=== PATIENT | female | born 1935 ===

== ENCOUNTER 2022-08-19 08:01 | Outpatient (CLI) | payer OTHER | END 2022-08-19 08:11 | disposition home or self-care (01) | LOC: EDBD 08:01 → RAD 08:01 | PROVIDERS: ATTEND Internal Medicine Cardiovascular Disease | DX: I63.50 Cerebral infarction due to unspecified occlusion or stenosis of unspecified cerebral artery (principal); R51.9 Headache, unspecified; R42 Dizziness and giddiness; R10.9 Unspecified abdominal pain; J44.9 Chronic obstructive pulmonary disease, unspecified ==

== ENCOUNTER 2023-01-05 09:16 | Outpatient (CLI) | payer OTHER | END 2023-01-05 09:19 | disposition home or self-care (01) | LOC: RAD 09:16 | PROVIDERS: ATTEND Internal Medicine Rheumatology | DX: M15.0 Primary generalized (osteo)arthritis (principal) ==